=== PATIENT | male | born 1935 | race African-American/Black ===

== ENCOUNTER 2017-10-19 19:48 | Emergency (ER) | payer MEDICAID ==
--- NOTE | 2017-10-19 23:14 | XRay Report ---
FINAL REPORT EXAM: XR ABDOMEN 1V AP HISTORY: constipation TECHNIQUE: KUB was performed Comparison: None FINDINGS: There is severe diffuse fecal retention. The imaged lung bases are clear. Heart size is normal. There levoscoliosis of the lumbar spine. IMPRESSION: Severe diffuse fecal retention. No suspicious calcifications.
--- NOTE | 2017-10-20 03:11 | Emergency Department Report ---
ED General Adult HPI - General Chief complaint: Abdominal Pain Stated complaint: CONSTIPATION Time Seen by Provider: 10/20/17 03:09 Source: patient, family, RN notes reviewed Mode of arrival: Ambulatory Limitations: Language Barrier (this provider is conversational in lithuanian) - History of Present Illness Initial comments: This is an 82-year-old male, previously unknown to this provider, who presents to the ER with the complaints resolved abdominal pain and constipation. His symptoms are intermittent and do not have exacerbating or relieving factors. The patient indicates this is a chronic problem. Patient indicates no headache , neck pain, chest pain, shortness of breath, urinary symptoms or testicular pain. -: Gradual Location: abdomen Radiation: non-radiation Quality: aching Consistency: intermittent Improves with: none Worsens with: none Associated Symptoms: denies: confusion, chest pain, cough, headaches, loss of appetite, malaise, shortness of breath, syncope, weakness - Related Data Previous Rx's Medication Instructions Recorded Last Taken Type Pantoprazole [Protonix TAB] 20 mg PO BID #60 tablet. 08/06/15 Unknown Rx Ondansetron [Zofran Odt] 4 mg PO Q8HR PRN #20 tab.rapdis 10/20/17 Unknown Rx Polyethylene Glycol 3350 [Miralax 17 gm PO QDAY #30 packet 10/20/17 Unknown Rx 3350] Allergies Allergy/AdvReac Type Severity Reaction Status Date / Time Penicillins Allergy Severe Anaphylaxis Verified 10/19/17 20:23 ED Review of Systems ROS: Stated complaint: CONSTIPATION Other details as noted in HPI ED Past Medical Hx - Past Medical History Previous Medical History?: No - Surgical History Past Surgical History?: No - Social History Smoking Status: Never Smoker Substance Use Type: None - Medications Home Medications: Home Medications Medication Instructions Recorded Confirmed Last Taken Type Pantoprazole [Protonix TAB] 20 mg PO BID #60 tablet. 08/06/15 Unknown Rx Ondansetron [Zofran Odt] 4 mg PO Q8HR PRN #20 tab.rapdis 10/20/17 Unknown Rx Polyethylene Glycol 3350 [Miralax 17 gm PO QDAY #30 packet 10/20/17 Unknown Rx 3350] ED Physical Exam - General Limitations: Language Barrier General appearance: alert, in no apparent distress - Head Head exam: Present: atraumatic, normocephalic - Eye Eye exam: Present: normal appearance, EOMI. Absent: nystagmus - ENT ENT exam: Present: normal exam, normal orophraynx, mucous membranes moist, normal external ear exam - Neck Neck exam: Present: normal inspection, full ROM - Respiratory Respiratory exam: Present: normal lung sounds bilaterally. Absent: respiratory distress - Cardiovascular Cardiovascular Exam: Present: regular rate, normal rhythm, normal heart sounds. Absent: bradycardia, tachycardia, irregular rhythm, systolic murmur, diastolic murmur, rubs, gallop - GI/Abdominal GI/Abdominal exam: Present: soft, normal bowel sounds. Absent: distended, tenderness, guarding, rebound, rigid, pulsatile mass - Rectal Rectal exam: Present: deferred - exam: Present: normal inspection. Absent: testicular tenderness External exam: Present: normal external exam (there is no testicular tenderness. There is normal testicular lie bilaterally. There is normal cremasteric reflex bilaterally.). Absent: erythema, swelling - Extremities Exam Extremities exam: Present: normal inspection, full ROM, normal capillary refill. Absent: tenderness, pedal edema, joint swelling, calf tenderness - Back Exam Back exam: Present: normal inspection, full ROM. Absent: tenderness, CVA tenderness (R), paraspinal tenderness, vertebral tenderness - Neurological Exam Neurological exam: Present: alert, CN II-XII intact, normal gait, other ( Extraocular movements intact. Tongue midline. No facial droop. Facial sensation intact to light touch in the V1, V2, V3 distribution bilaterally. 5 and 5 strength in 4 extremities.. Sensation is intact to light touch in 4 extremities.). Absent: motor sensory deficit - Psychiatric Psychiatric exam: Present: normal affect, normal mood - Skin Skin exam: Present: warm, dry, intact, normal color. Absent: rash ED Course Vital Signs 10/19/17 10/19/17 10/20/17 20:06 20:23 02:45 Temperature 97.8 F 97.8 F Pulse Rate 86 88 91 H Respiratory 18 18 Rate Blood Pressure 141/77 141/77 O2 Sat by Pulse 98 98 Oximetry 10/20/17 10/20/17 10/20/17 03:00 03:16 03:30 Temperature Pulse Rate 76 66 67 Respiratory 14 15 13 Rate Blood Pressure 144/82 114/70 125/71 O2 Sat by Pulse 100 99 99 Oximetry 10/20/17 03:54 Temperature Pulse Rate Respiratory 20 Rate Blood Pressure O2 Sat by Pulse 96 Oximetry ED Medical Decision Making - Lab Data Vital Signs 10/19/17 10/19/17 10/20/17 20:06 20:23 02:45 Temperature 97.8 F 97.8 F Pulse Rate 86 88 91 H Respiratory 18 18 Rate Blood Pressure 141/77 141/77 O2 Sat by Pulse 98 98 Oximetry 10/20/17 10/20/17 10/20/17 03:00 03:16 03:30 Temperature Pulse Rate 76 66 67 Respiratory 14 15 13 Rate Blood Pressure 144/82 114/70 125/71 O2 Sat by Pulse 100 99 99 Oximetry 10/20/17 03:54 Temperature Pulse Rate Respiratory 20 Rate Blood Pressure O2 Sat by Pulse 96 Oximetry - Radiology Data Radiology results: report reviewed, image reviewed Referring Physician: NANCY TROY Patient Name: ABIGAIL CARTER Date of : 1935 Sex: Male Report Date: 2017-10-20 Report Status: [place] [address] Cat Scan Report Signed Patient: ABIGAIL CARTER MR#: [id number] : 1935 Acct:[id number] Age/Sex: 82 / M ADM Date: 10/19/17 Loc: ED Attending Dr: Ordering Physician: NANCY TROY MD Date of Service: 10/20/17 Procedure(s): CT abdomen pelvis wo con Accession Number(s): [id number] cc: NANCY TROY MD FINAL REPORT EXAM: CT ABDOMEN PELVIS WO CON HISTORY: abd pain TECHNIQUE: CT images obtained through the Abdomen and Pelvis without contrast. Transaxial,coronal and sagittal reformats are provided. PRIORS: Abdominal radiograph 10/19/2017 FINDINGS: Imaged intrathoracic contents are unremarkable. Kidneys are normal in size, axis and position. No hydronephrosis or nephrolithiasis. The ureters are normal in course and caliber. No stones are seen within the urinary bladder. The liver, gallbladder, pancreas, spleen, and adrenal glands demonstrate an unremarkable noncontrast appearance. Hollow enteric organs are normal in course and caliber. Moderate to large stool burden. Appendix is normal. No intra-abdominal free air/fluid or lymphadenopathy. Aorta is normal in course and caliber with scattered atherosclerosis. Superficial soft tissues are unremarkable. No acute or aggressive appearing skeletal findings. IMPRESSION: No acute findings in the abdomen or pelvis. Transcribed By: MB Dictated By: NANCY HALE MD Electronically Authenticated By: NANCY HALE MD Signed Date/Time: 10/20/17111 DD/ 1 TD/TT: 10/20/17111 X-ray of the abdomen and pelvis, interpreted by radiology: Constipation - Medical Decision Making Differential diagnosis, including but not limited to: Bowel obstruction, constipation Assessment and plan: 82-year-old male with a complaint of constipation and x-ray /CT scan was corroborated the same. Patient is afebrile with reassuring vital signs and a benign abdominal examination, patient has been observed in the ER for 10 hours without clinical decompensation. Patient will be discharged with instructions to change diet and lifestyle, and given prescription for as needed MiraLAX, as needed nausea medication. Return precautions reviewed. Critical care attestation.: If time is entered above; I have spent that time in minutes in the direct care of this critically ill patient, excluding procedure time. ED Disposition Clinical Impression: Constipation Disposition: DC-01 TO HOME OR SELFCARE Is pt being admited?: No Does the pt Need Aspirin: No Condition: Stable Instructions: Constipation (ED), High Fiber Diet (ED) Additional Instructions: Drink 6-8 cups of water per day. Eat plenty of fruits, fibers, vegetables. Avoid heavy, spicy foods. Take the medications as needed/directed. Constipation typically takes weeks to get better. Follow up with either primary care or gastroenterology as listed within the next 2-3 weeks. Return to the ER right away with new pain, worsened pain, migration of pain, fevers, chills, lethargy, irritability, projectile vomiting, confusion, change in mental status, inability to tolerate liquid feeds. Makenna 6-8 tazas de agua por da. Coma muchas frutas, fibras, vegetales. Evite las comidas pesadas y picantes. Kake los medicamentos segn sea necesario / dirigido. El estreimiento generalmente ricardo semanas para mejorar. Realice un seguimiento con atencin primaria o gastroenterologa morenita se detalla en las pr ximas 2-3 semanas. Regrese a la shey de urgencias inmediatamente con dolor nuevo , dolor empeorado, migracin de dolor, fiebre, escalofros, letargo, irritabilidad, vmitos de proyectil, confusin, cambio en el estado mental, incapacidad para tolerar alimentos lquidos. Referrals: PRIMARY CARE,MD [Primary Care Provider] - 3-5 Days MARCELO ROJAS MD [Staff Physician] - 3-5 Days TARA JOSHI MD [Staff Physician] - 3-5 Days
--- NOTE | 2017-10-20 05:16 | Cat Scan Report ---
FINAL REPORT EXAM: CT ABDOMEN PELVIS WO CON HISTORY: abd pain TECHNIQUE: CT images obtained through the Abdomen and Pelvis without contrast. Transaxial,coronal and sagittal reformats are provided. PRIORS: Abdominal radiograph 10/19/2017 FINDINGS: Imaged intrathoracic contents are unremarkable. Kidneys are normal in size, axis and position. No hydronephrosis or nephrolithiasis. The ureters are normal in course and caliber. No stones are seen within the urinary bladder. The liver, gallbladder, pancreas, spleen, and adrenal glands demonstrate an unremarkable noncontrast appearance. Hollow enteric organs are normal in course and caliber. Moderate to large stool burden. Appendix is normal. No intra-abdominal free air/fluid or lymphadenopathy. Aorta is normal in course and caliber with scattered atherosclerosis. Superficial soft tissues are unremarkable. No acute or aggressive appearing skeletal findings. IMPRESSION: No acute findings in the abdomen or pelvis.
[2017-10-20 06:21] VITALS: BP 132/82
== END 2017-10-20 06:21 | disposition home or self-care (01) ==
LOC: ED 19:48
DX: K59.00 Constipation, unspecified (principal); Z88.0 Allergy status to penicillin
CPT/HCPCS: 74000; 74176; 99284

== ENCOUNTER 2019-09-14 10:01 | Outpatient (CLI) | payer MEDICAID ==
--- NOTE | 2019-09-14 10:49 | XRay Report ---
ABDOMEN 1 VIEW INDICATION: K59.09 COLONIC CONSTIPATION. Sitz markers ingested 5 days ago. COMPARISON: No relevant prior imaging study available. FINDINGS: 21 Sitzmarks are identified in the left colon. A large volume of stool throughout the colon and in th e rectum. No distended bowel. No free air. Phleboliths in the pelvis. No suspicious calcifications. O steopenia and degenerative change in the spine. IMPRESSION: 1. Abnormal study with prolonged colonic transit time. Signer Name: Hugo Ly MD Signed: 09/14/2019 10:45 AM Workstation Name: [id number]
== END 2019-09-14 10:02 | disposition home or self-care (01) ==
LOC: XRAY 10:01
PROVIDERS: ATTEND Internal Medicine Gastroenterology
DX: K59.09 Other constipation (principal); M85.88 Other specified disorders of bone density and structure, other site; M47.819 Spondylosis without myelopathy or radiculopathy, site unspecified
CPT/HCPCS: 74018

== ENCOUNTER 2022-01-26 16:44 | Emergency (ER) | payer MEDICAID ==
[2022-01-26] MEDS ORDERED: TETANUS,DIPH,PERTUSS(ACELL) VACCINE 0.5 ML SYRINGE IM ONE (17:06)
[2022-01-26] MEDS ORDERED: HYDROcodone/ACETAMINOPHEN 5-325 MG TAB PO ONE (17:06)
--- NOTE | 2022-01-26 17:11 | Emergency Department Report ---
HPI - General Chief Complaint: Head Injury Time Seen by Provider: 01/26/22 16:58 - HPI HPI: Room 4 The patient is an 86-year-old male present with a chief complaint of head injury after fall. Patient has a history of dementia and apparently wandered from the home yesterday and again today. The patient states he was walking when he fell forward landing on his knees and then striking his head. Patient complains of a headache and gives it a score of 8/10. Patient also complains of some low back pain and pain in bilateral knees. Patient denies nausea/vomiting ED Past Medical Hx - Past Medical History Hx Arthritis: Yes Hx Dementia: Yes - Surgical History Past Surgical History?: No - Family History Family history: no significant - Social History Smoking Status: Never Smoker Substance Use Type: None - Medications Home Medications: Home Medications Medication Instructions Recorded Confirmed Last Taken Type Pantoprazole [Protonix TAB] 20 mg PO BID #60 tablet. 08/06/15 Unknown Rx Ondansetron [Zofran Odt] 4 mg PO Q8HR PRN #20 tab.rapdis 10/20/17 Unknown Rx polyethylene glycoL 3350 [Miralax 17 gm PO QDAY #30 packet 10/20/17 Unknown Rx 3350] traMADoL [Ultram] 50 mg PO Q6HR PRN #10 tablet 01/26/22 Unknown Rx ED Review of Systems ROS: Stated complaint: FOREHEAD LACERATION Other details as noted in HPI Constitutional: no symptoms reported Eyes: denies: eye pain ENT: denies: throat pain Respiratory: no symptoms reported Cardiovascular: denies: chest pain Endocrine: no symptoms reported Gastrointestinal: denies: nausea, vomiting Genitourinary: denies: dysuria Musculoskeletal: arthralgia, myalgia Neurological: headache Physical Exam - Physical Exam Physical Exam: GENERAL: The patient is well-developed well-nourished []. [] HEENT: Normocephalic. There are 2 parallel linear lacerations to the forehead approximately 2.5 cm each. Extraocular motions are intact. Patient has moist mucous membranes. NECK: Supple. There is axial tenderness palpation but no axial step-off CHEST/LUNGS: Clear to auscultation. There is no respiratory distress noted. HEART/CARDIOVASCULAR: Regular. There is no tachycardia. There is no gallop rub or murmur. ABDOMEN: Abdomen is soft, nontender. Patient has normal bowel sounds. There is no abdominal distention. SKIN: There is no rash. There is no edema. There is no diaphoresis. NEURO: The patient is awake and alert. The patient is cooperative. The patient has no focal neurologic deficits. The patient has normal speech. GCS 15 MUSCULOSKELETAL: There is tenderness to palpation of bilateral knees and lower back. There is no evidence of acute injury. - Laceration /Wound Repair Head Wound Location: head Wound Length (cm): 4 Wound's Depth, Shape: linear Wound Explored: clean Irrigated w/ Saline (ccs): 400 Betadine Prep?: Yes Wound Repaired With: Dermabond ED Medical Decision Making - Radiology Data Radiology results: report reviewed (CT head, CT cervical spine, thoracic spine x-ray, lumbar spine x-ray, bilateral knee x-ray), image reviewed (CT head, CT cervical spine, thoracic spine x-ray, lumbar spine x-ray, bilateral knee x-ray) interpreted by me: T-spine x-ray-no acute fracture L-spine [id number], no acute fracture Bilateral knee x-ray-no acute fractures, no dislocation [facility] [address] [place] [address] Cat Scan Report Signed Patient: ABIGAIL SPICER MR #: [id number] : 1935 Acct:[id number] Age/Sex: 86 / M ADM Date: 01/26/22 Loc: ED Attending Dr: Ordering Physician: DEJA ROY MD Date of Service: 01/26/22 Procedure(s): CT head/brain wo con Accession Number(s): [id number] cc: DEJA ROY MD CT head/brain wo con INDICATION / CLINICAL INFORMATION: 86 years Male; Pain after fall. TECHNIQUE: Routine CT head without contrast. All CT scans at this location are performed using CT dose reduction for ALARA by means of automated exposure control. COMPARISON: None available. FINDINGS: BRAIN / INTRACRANIAL CONTENTS: There is extensive cerebral white matter disease most notably involving the posterior periventricular regions and most consistent with microvascular angiopathy. There is mild to moderate cerebral atrophy with associated prominence of the ventricular system. There is no clear CT evidence of acute intracranial hemorrhage or significant mass effect. ORBITS: No significant abnormality of visualized orbits. SINUSES / MASTOIDS: There is minimal mucosal thickening involving ethmoid and right maxillary sinuses. CRANIOCERVICAL JUNCTION: No significant abnormality. ADDITIONAL FINDINGS: None. IMPRESSION: 1. There is extensive microvascular angiopathy and mild to moderate cerebral atrophy as described without clear CT evidence of acute intracranial hemorrhage. Signer Name: Enoch Ralph MD Signed: 01/26/2022 6:06 PM Workstation Name: [id number] Transcribed By: MR Dictated By: Enoch Ralph MD Electronically Authenticated By: Enoch Ralph MD Signed Date/Time: 01/26/221805 DD/ 02 TD/TT: [address] [address] XRay Report Signed Patient: ABIGAIL SPICER MR #: [id number] : 1935 Acct:[id number] Age/Sex: 86 / M ADM Date: 01/26/22 Loc: ED Attending Dr: Ordering Physician: DEJA ROY MD Date of Service: 01/26/22 Procedure(s): XR spine thoracic 2V Accession Number(s): [id number] cc: DEJA ROY MD Fluoro Time In Minutes: THORACIC SPINE 3 VIEWS INDICATION / CLINICAL INF ORMATION: Pain after fall. COMPARISON: None available. FINDINGS: BONES / JOINT(S): No acute fracture or subluxation. Mild degenerative disc disease is scattered diffusely. Underlying osteopenia. SOFT TISSUES: No significant abnormality. ADDITIONAL FINDINGS: None. Signer Name: Donald Roberson MD Signed: 01/26/2022 6:01 PM Workstation Name: [id number] Transcribed By: ES Dictated By: Donald Roberson MD Electronically Authenticated By: Donald Roberson MD Signed Date/Time: 01/26/221800 DD/ [address] [address] XRay Report Signed Patient: ABIGAIL SPICER MR #: [id number] : 1935 Acct:[id number] Age/Sex: 86 / M ADM Date: 01/26/22 Loc: ED Attending Dr: Ordering Physician: DEJA ROY MD Date of Service: 01/26/22 Procedure(s): XR spine lumbosacral 2-3V Accession Number(s): [id number] cc: DEJA ROY MD Fluoro Time In Minutes: Lumbar spine 3 views INDICATION: Low back pain IMPRESSION: There is scoliosis of the lumbar spine, centered at L2. There is multilevel discogenic and facet arthropathy of the lumbar spine particularly at L3-L4 at L5-S1. No fracture is identified. Signer Name: Cpiriano Salter MD Signed: 01/26/2022 5:55 PM Workstation Name: [id number] Transcribed By: Dictated By: Cipriano Salter MD Electronically Authenticated By: Cipriano Salter MD Signed Date/Time: 01/26/221754 DD/ 53 TD/TT: [address] [address] XRay Report Signed Patient: ABIGAIL SPICER MR #: [id number] : 1935 Acct:[id number] Age/Sex: 86 / M ADM Date: 01/26/22 Loc: ED Attending Dr: Ordering Physician: DEJA ROY MD Date of Service: 01/26/22 Procedure(s): XR knee BILAT 1-2V Accession Number(s): [id number] cc: DEJA ROY MD Fluoro Time In Minutes: Knee bilateral 4 views INDICATION: Knee pain after fall IMPRESSION: No fracture or subluxation of either knee is identified. Slight osteopenia present bilaterally. Tiny knee effusions are noted Signer Name: Cipriano Salter MD Signed: 01/26/2022 6:00 PM Workstation Name: [id number] Transcribed By: BC Dictated By: Cipriano Salter MD Electronically Authenticated By: Cipriano Salter MD Signed Date/Time: 01/26/221799 DD/ 58 TD/TT: [address] [address] Cat Scan Report Signed Patient: ABIGAIL SPICER MR #: [id number] : 1935 Acct:[id number] Age/Sex: 86 / M ADM Date: 01/26/22 Loc: ED Attending Dr: Ordering Physician: DEJA ROY MD Date of Service: 01/26/22 Procedure(s): CT cervical spine wo con Accession Number(s): [id number] cc: DEJA ROY MD CT cervical spine wo con INDICATION / CLINICAL INFORMATION: 86 years Male; Pain after fall. TECHNIQUE: Axial CT images of the cervical spine were obtained. Sagittal and coronal reformatted images were produced. All CT scans at this location are performed using CT dose reduction for ALARA by means of automated exposure control. COMPARISON: None available. FINDINGS: POST-SURGICAL CHANGES: None. ALIGNMENT: There is mild curvature the cervical spine, convex toward the right. There is no significant spondylolisthesis. VERTEBRAE: There is disc space narrowing with notable degenerative endplate changes at C5-6 and C6- 7. However, there is no clear CT evidence of acute fracture of the cervical spine. INTRAVERTEBRAL DISCS: The facet and uncovertebral joint hypertrophy at C3-4 greater on the left with moderate to marked left foraminal narrowing at. The spondylosis at C4-5 effaces the ventral subarachnoid space. There is marked left and mild right neural from narrowing at this level. The spondylosis at C5-6 also effaces the ventral subarachnoid space. There is marked right and moderate to marked left neural foraminal narrowing at. There is marked foraminal narrowing bilaterally at C6-7. The spondylosis effaces the [space at this level. PARASPINAL SOFT TISSUES: No definitive prevertebral soft tissue fluid collections are identified. There are fibrotic changes involving the visualized right lung apex. ADDITIONAL FINDINGS: None. IMPRESSION: 1. There is no CT evidence of acute fracture involving cervical spine. 2. There are multilevel degenerative the changes of the visualized cervicothoracic spine as detailed above. Signer Name: Enoch Ralph MD Signed: 01/26/2022 6:21 PM Workstation Name: [id number] Transcribed By: MR Dictated By: Enoch Ralph MD Electronically Authenticated By: Enoch Ralph MD Signed Date/Time: 01/26/221820 DD/ 16 TD/TT: - Differential Diagnosis Closed head injury, ICH, forehead lacerations, lumbar strain, lumbar fractu Critical care attestation.: If time is entered above; I have spent that time in minutes in the direct care of this critically ill patient, excluding procedure time. ED Disposition Clinical Impression: Dementia, Closed head injury, Acute cervical myofascial strain, Acute thoracic myofascial strain, Lumbar strain, Forehead laceration Disposition: HOME / SELF CARE / HOMELESS Is pt being admited?: No Does the pt Need Aspirin: No Condition: Stable Instructions: Sutures, Elizabeth, or Adhesive Wound Closure Additional Instructions: Return to the emergency department should you develop worsening symptoms, inability to tolerate food or liquids, high fever or any other concerns Prescriptions: traMADoL [Ultram] 50 mg PO Q6HR PRN #10 tablet PRN Reason: Pain Referrals: PRIMARY CARE, [Referring] - 3-5 Days Time of Disposition: 18:36
[2022-01-26] MEDS ORDERED: LIDOCAINE (1%) 10 MG/1 ML VIAL 20 ML MDV INFILTRATI ONE (17:51)
[2022-01-26] MEDS ORDERED: SODIUM CHLORIDE 0.9% IRR 500 ML BOTTLE IR ONE (17:52)
--- NOTE | 2022-01-26 17:59 | XRay Report ---
Lumbar spine 3 views INDICATION: Low back pain IMPRESSION: There is scoliosis of the lumbar spine, centered at L2. There is multilevel discogenic an d facet arthropathy of the lumbar spine particularly at L3-L4 at L5-S1. No fracture is identified. Signer Name: Cipriano Salter MD Signed: 01/26/2022 5:55 PM Workstation Name: [id number]
--- NOTE | 2022-01-26 18:04 | XRay Report ---
Knee bilateral 4 views INDICATION: Knee pain after fall IMPRESSION: No fracture or subluxation of either knee is identified. Slight osteopenia present bilate rally. Tiny knee effusions are noted Signer Name: Cipriano Salter MD Signed: 01/26/2022 6:00 PM Workstation Name: [id number]
--- NOTE | 2022-01-26 18:05 | XRay Report ---
THORACIC SPINE 3 VIEWS INDICATION / CLINICAL INFORMATION: Pain after fall. COMPARISON: None available. FINDINGS: BONES / JOINT(S): No acute fracture or subluxation. Mild degenerative disc disease is scattered diffu sely. Underlying osteopenia. SOFT TISSUES: No significant abnormality. ADDITIONAL FINDINGS: None. Signer Name: Donald Roberson MD Signed: 01/26/2022 6:01 PM Workstation Name: [id number]
--- NOTE | 2022-01-26 18:11 | Cat Scan Report ---
CT head/brain wo con INDICATION / CLINICAL INFORMATION: 86 years Male; Pain after fall. TECHNIQUE: Routine CT head without contrast. All CT scans at this location are performed using CT dos e reduction for ALARA by means of automated exposure control. COMPARISON: None available. FINDINGS: BRAIN / INTRACRANIAL CONTENTS: There is extensive cerebral white matter disease most notably involvin g the posterior periventricular regions and most consistent with microvascular angiopathy. There is m ild to moderate cerebral atrophy with associated prominence of the ventricular system. There is no cl ear CT evidence of acute intracranial hemorrhage or significant mass effect. ORBITS: No significant abnormality of visualized orbits. SINUSES / MASTOIDS: There is minimal mucosal thickening involving ethmoid and right maxillary sinuses . CRANIOCERVICAL JUNCTION: No significant abnormality. ADDITIONAL FINDINGS: None. IMPRESSION: 1. There is extensive microvascular angiopathy and mild to moderate cerebral atrophy as described wit neryut clear CT evidence of acute intracranial hemorrhage. Signer Name: Enoch Ralph MD Signed: 01/26/2022 6:06 PM Workstation Name: [id number]
--- NOTE | 2022-01-26 18:25 | Cat Scan Report ---
CT cervical spine wo con INDICATION / CLINICAL INFORMATION: 86 years Male; Pain after fall. TECHNIQUE: Axial CT images of the cervical spine were obtained. Sagittal and coronal reformatted images were pr oduced. All CT scans at this location are performed using CT dose reduction for ALARA by means of aut omated exposure control. COMPARISON: None available. FINDINGS: POST-SURGICAL CHANGES: None. ALIGNMENT: There is mild curvature the cervical spine, convex toward the right. There is no significa nt spondylolisthesis. VERTEBRAE: There is disc space narrowing with notable degenerative endplate changes at C5-6 and C6-7. However, there is no clear CT evidence of acute fracture of the cervical spine. INTRAVERTEBRAL DISCS: The facet and uncovertebral joint hypertrophy at C3-4 greater on the left with moderate to marked left foraminal narrowing at. The spondylosis at C4-5 effaces the ventral subarachn oid space. There is marked left and mild right neural from narrowing at this level. The spondylosis at C5-6 also effaces the ventral subarachnoid space. There is marked right and modera te to marked left neural foraminal narrowing at. There is marked foraminal narrowing bilaterally at C 6-7. The spondylosis effaces the [space at this level. PARASPINAL SOFT TISSUES: No definitive prevertebral soft tissue fluid collections are identified. The re are fibrotic changes involving the visualized right lung apex. ADDITIONAL FINDINGS: None. IMPRESSION: 1. There is no CT evidence of acute fracture involving cervical spine. 2. There are multilevel degenerative the changes of the visualized cervicothoracic spine as detailed above. Signer Name: Enoch Ralph MD Signed: 01/26/2022 6:21 PM Workstation Name: [id number]
== END 2022-01-26 18:57 | disposition home or self-care (01) ==
LOC: ED 16:44
DX: S01.81XA Laceration without foreign body of other part of head, initial encounter (principal); S09.90XA Unspecified injury of head, initial encounter; S16.1XXA Strain of muscle, fascia and tendon at neck level, initial encounter; S39.012A Strain of muscle, fascia and tendon of lower back, initial encounter; S29.012A Strain of muscle and tendon of back wall of thorax, initial encounter; M19.90 Unspecified osteoarthritis, unspecified site; F03.90 Unspecified dementia, unspecified severity, without behavioral disturbance, psychotic disturbance, mood disturbance, and anxiety; W19.XXXA Unspecified fall, initial encounter; Y93.89 Activity, other specified; Y92.89 Other specified places as the place of occurrence of the external cause; Y99.8 Other external cause status
CPT/HCPCS: 12013; 70450; 72070; 72100; 72125; 73560; 90471; 90715; 99284; J3490